=== PATIENT | female | born 1955 | race Asian ===

== ENCOUNTER → 2016-06-17 | Outpatient (CLI) | payer OTHER ==
[~2016-06-17] MED LIST: ADVIL 200MG TA200 MG PO; CEFTIN 250250 MG/TAB PO; CEFTIN250 MG PO; CIPRO 250MG TA250 MG PO; CRANBERRY1 CAP PO; FORTAMET500 MG PO; GLUCOPHAGE PO; INVANZ1 G1 IV; LEVAQUIN 5500 MG/TAB PO; MACROBID 1100 MG/CAP PO; METFORMIN PO; NKA; NO HOME MEDICATIONS; OSTEO-BI-FLEX 21 TAB PO; PYRIDIATE200 MG PO; PYRIDIUM 100MG100 MG PO; PYRIDIUM200 M1 PO; TYLENOL 325MG325 MG PO
== END ==
LOC: MC.RAD 08:18
DX: Z12.31 Encounter for screening mammogram for malignant neoplasm of breast (principal)

== ENCOUNTER 2016-08-28 06:34 | Day surgery (SDC) | payer OTHER ==
[~2016-08-28] VITALS: Ht 152.4 cm; Wt 50.7 kg
[2016-08-28 07:04] VITALS: BP 129/76; PULSE 77; TEMP 98.4
[2016-08-28 08:05] VITALS: BP 109/66; PULSE 75; TEMP 97.8
[2016-08-28 08:15] VITALS: BP 102/64; PULSE 73
[2016-08-28 08:30] VITALS: BP 116/71; PULSE 70
[2016-08-28 09:07] VITALS: BP 112/67; PULSE 81
== END 2016-08-28 08:52 | disposition home or self-care (01) ==
LOC: SDCO 06:34
DX: Z12.11 Encounter for screening for malignant neoplasm of colon (principal); D12.5 Benign neoplasm of sigmoid colon; K57.30 Diverticulosis of large intestine without perforation or abscess without bleeding; E11.9 Type 2 diabetes mellitus without complications; E78.00 Pure hypercholesterolemia, unspecified
CPT/HCPCS: J2250; J3010; J7030

== ENCOUNTER → 2016-11-13 | Outpatient (CLI) | payer OTHER | LOC: COL.VAS 07:44 | DX: I08.3 Combined rheumatic disorders of mitral, aortic and tricuspid valves (principal) ==

== ENCOUNTER → 2017-06-23 | Outpatient (CLI) | payer OTHER | LOC: MC.RAD 09:18 | DX: Z12.31 Encounter for screening mammogram for malignant neoplasm of breast (principal); Z98.890 Other specified postprocedural states ==

== ENCOUNTER → 2017-07-13 | Outpatient (CLI) | payer OTHER | LOC: COL.RAD 14:08 | DX: K52.9 Noninfective gastroenteritis and colitis, unspecified (principal) | CPT/HCPCS: Q9967 ==

== ENCOUNTER → 2018-05-19 | Outpatient (CLI) | payer OTHER | LOC: MC.RAD 10:01 | DX: N63.10 Unspecified lump in the right breast, unspecified quadrant (principal) | CPT/HCPCS: G0279 ==

== ENCOUNTER → 2019-06-26 | Outpatient (CLI) | payer OTHER | LOC: MC.RAD 05-23 09:30 | DX: Z12.31 Encounter for screening mammogram for malignant neoplasm of breast (principal) ==

== ENCOUNTER → 2020-06-26 | Outpatient (CLI) | payer OTHER | LOC: MC.RAD 07:03 | DX: Z12.31 Encounter for screening mammogram for malignant neoplasm of breast (principal); Z98.82 Breast implant status ==

== ENCOUNTER 2021-04-28 20:14 | Emergency (ER) | payer OTHER ==
[~2021-04-28] VITALS: Ht 152.4 cm; Wt 54.5 kg
[2021-04-28 20:40] VITALS: TEMP 98.5
[2021-04-28 20:55] VITALS: BP 183/97; PULSE 86
== END 2021-04-28 21:00 | disposition home or self-care (01) ==
LOC: COL.ER 20:14
DX: S60.454A Superficial foreign body of right ring finger, initial encounter (principal)

== ENCOUNTER → 2021-05-16 | Outpatient (CLI) | payer OTHER | LOC: COL.VAS 13:25 | DX: I35.1 Nonrheumatic aortic (valve) insufficiency (principal); I10 Essential (primary) hypertension ==

== ENCOUNTER → 2021-07-04 | Outpatient (CLI) | payer OTHER | LOC: MC.RAD 07:15 | DX: Z12.31 Encounter for screening mammogram for malignant neoplasm of breast (principal) ==

== ENCOUNTER 2021-08-29 05:47 | Day surgery (SDC) | payer OTHER ==
[~2021-08-29] VITALS: Ht 152.4 cm; Wt 52.7 kg
[2021-08-29 06:16] VITALS: BP 129/75; PULSE 80; TEMP 97.3
[2021-08-29] MEDS ORDERED: TIROSINT50 MC1 PO (06:22)
[2021-08-29] MEDS ORDERED: PRINIVIL5 MG PO (06:22)
[2021-08-29] MEDS ORDERED: GLUCOPHAGE500 MG/TAB PO (06:23)
[2021-08-29] MEDS ORDERED: LIPITOR 10MG10 MG PO (06:23)
[2021-08-29 07:25] VITALS: BP 100/62; PULSE 76; TEMP 96.8
--- NOTE | 2021-08-29 07:33 | NUR ---
0725 - PT arrives drowsy but oriented; ambulated 2:1 to chair from cart. Montiors applied and VSS. PT denies nausea and pain. Chavez is present. PT provided water without ice and a warm muffin per request. Warm blankets applied. Non-slip socks remain on. PT oriented to room and call rubin, within reach. Will monitor per intervals.
[2021-08-29 07:40] VITALS: BP 110/68; BP 125/68; PULSE 72; PULSE 78
--- NOTE | 2021-08-29 07:40 | NUR ---
VSS. PT denies nausa. States some abdominal discomfort, but is unable to rate her pain. RN educated her on the use of a heating pad, on a low setting to reduce gaseous discomfort. PT verbalized understanding. PT expressed desire to be discharged. Call rubin remains within reach.
[2021-08-29 07:55] VITALS: BP 125/68; PULSE 72
--- NOTE | 2021-08-29 07:56 | NUR ---
0755 - VSS. IV discontinued. Catheter tip intact. Pressure bandage applied. NO redness or swelling noted. DC instructions and educational material reviewed with the PT, who verbalized understanding and signed the realted paperwork. PT denied needing assistance changing into personal clothes; Chavez remains present. Call rubin remains within reach. Awaiting DR to speak with PT. PT has finished her drink and snack.
--- NOTE | 2021-08-29 08:51 | NUR ---
0825 - PT dismissed from endo via wheelchair to the PT entrence by Lovely YAÑEZ. PT has DC packet and personal belongings and was transferred into the care of Chavez, who is driving private car.
== END 2021-08-29 08:25 | disposition home or self-care (01) ==
LOC: SDCO 05:47
DX: Z12.11 Encounter for screening for malignant neoplasm of colon (principal); Z86.010 Personal history of colon polyps; K57.30 Diverticulosis of large intestine without perforation or abscess without bleeding; E11.9 Type 2 diabetes mellitus without complications; Z79.84 Long term (current) use of oral hypoglycemic drugs
CPT/HCPCS: J2704; J7120

== ENCOUNTER → 2023-08-05 | Outpatient (CLI) | payer MEDICARE ==
[~2023-08-05] MED LIST changes: +GLUCOPHAGE500 MG/TAB PO; +LIPITOR 10MG10 MG PO; +PRINIVIL5 MG PO; +TIROSINT50 MC1 PO
== END ==
LOC: MC.RAD 09:15
DX: Z12.31 Encounter for screening mammogram for malignant neoplasm of breast (principal)